=== PATIENT | female | born 1955 | race American Indian/Alaskan Native ===

== ENCOUNTER 2020-10-19 17:08 | Inpatient (IN) | payer BC ==
[~2020-10-19] VITALS: Ht 157.5 cm; Wt 87.8 kg
[2020-10-19] MEDS: DOXYCYCLINE 100MG/250ML 250 ML IV SCH (02:40)
[~2020-10-19 17:08] MED LIST: INSUINJ37 SUBCUT; LINA5TAB PO; LOSA25TA38 PO; METF-370 PO
[2020-10-19] MEDS ORDERED: methylPREDNISolone SOD SUCC 125 MG/2 ML VL IV ONE (18:45)
[2020-10-19] MEDS ORDERED: AZITHROMYCIN 500MG/ 250ML 250 ML IV ONE (18:45)
[2020-10-19] MEDS ORDERED: ZINC SULFATE 220mg CAP or TAB PO ONE (18:45)
[2020-10-19] MEDS ORDERED: SODIUM CHLORIDE 0.9% 500 ML IV ONE (18:45)
[2020-10-19] MEDS ORDERED: SODIUM CHLORIDE 0.9% 1,000 ML IV SCH (21:15)
[2020-10-19 21:23] LABS: Basophils # (auto) 0 10 ^3/uL (0-0.2); Basophils % (auto) 0.5 % (0.0-2.0); Eosinophils # (auto) 0.1 10 ^3/uL (0-0.8); Eosinophils % (auto) 1.8 % (0.0-7.0); Hematocrit 39.3 % (36.0-46.0); Hemoglobin 13.2 g/dL (12.2-16.2); Lymphocytes # (auto) 0.7 10 ^3/uL (0.4-5.4); Lymphocytes % (auto) 14.6 % (10.0-50.0); Mean Corpuscular Hemoglobin 27.3 pg (28.0-32.0); Mean Corpuscular Hgb Conc. 33.5 g/dL (32.0-36.0); Mean Corpuscular Volume 81.4 fL (80.0-100.0); Monocytes # (auto) 0.5 10 ^3/uL (0-1.3); Monocytes % (auto) 10.8 % (0.0-12.0); Neutrophils # (auto) 3.7 10 ^3/uL (1.6-8.6); Neutrophils % (auto) 72.3 % (37.0-80.0); Nucleated Red Blood Cells % 0.5 %; Platelet Count (auto) 315 10^3/uL (140-450); Red Blood Cells 4.83 10^6/uL (4.0-5.20); Red Cell Distribution Width 14.4 % (11.8-14.3); White Blood Cell 5.1 10^3/uL (4.4-10.8)
[2020-10-19 21:38] LABS: Albumin 3.1 g/dL (3.4-5.0); Anion Gap 9 (5-15); BUN/Creatinine Ratio 10.6; Blood Urea Nitrogen 5 mg/dL (7-18); Calcium 8.7 mg/dL (8.5-10.1); Carbon Dioxide 26 mmol/L (21-32); Chloride 96 mmol/L (98-107); GFR African American 172 mL/min; GFR Non-African American 142 mL/min; Glucose 121 mg/dL (74-106); Magnesium 1.8 mg/dL (1.6-2.6); Potassium 3.2 mmol/L (3.5-5.1); Sodium 131 mmol/L (136-145)
[2020-10-19 21:43] LABS: Alanine Aminotransferase 34 U/L (13-56); Alkaline Phosphatase 88 U/L (45-117); Aspartate Aminotransferase 22 U/L (15-37); Bilirubin, Total 0.8 mg/dL (0.2-1.0); Total Protein 7.9 g/dL (6.4-8.2)
[2020-10-19] MEDS: ALBUTEROL SULF HFA 90MCG INH 200DOSE IN SCH (22:00)
[2020-10-19] MEDS ORDERED: ONDANSETRON HCL 4 MG/2 ML VIAL IV PRN (22:45)
[2020-10-19] MEDS ORDERED: TEMAZEPAM 15 MG CAP PO PRN (22:45)
[2020-10-19] MEDS ORDERED: ACETAMINOPHEN 325 MG TAB PO PRN (22:45)
[2020-10-19] MEDS ORDERED: NITROGLYCERIN 0.4 MG SL TAB SL PRN (22:45)
[2020-10-19] MEDS ORDERED: MORPHINE SULF INJ 2 MG/ML SYRINGE 1ML IV PRN (22:45)
[2020-10-20 03:28] VITALS: BP 114/65
[2020-10-20 05:40] LABS: Basophils # (auto) 0 10 ^3/uL (0-0.2); Basophils % (auto) 0.2 % (0.0-2.0); Eosinophils # (auto) 0 10 ^3/uL (0-0.8); Eosinophils % (auto) 0.6 % (0.0-7.0); Hematocrit 40.9 % (36.0-46.0); Hemoglobin 13.8 g/dL (12.2-16.2); Lymphocytes # (auto) 0.4 10 ^3/uL (0.4-5.4); Lymphocytes % (auto) 7.4 % (10.0-50.0); Mean Corpuscular Hemoglobin 27.6 pg (28.0-32.0); Mean Corpuscular Hgb Conc. 33.8 g/dL (32.0-36.0); Mean Corpuscular Volume 81.7 fL (80.0-100.0); Monocytes # (auto) 0.3 10 ^3/uL (0-1.3); Monocytes % (auto) 5.1 % (0.0-12.0); Neutrophils # (auto) 4.8 10 ^3/uL (1.6-8.6); Neutrophils % (auto) 86.7 % (37.0-80.0); Nucleated Red Blood Cells % 0.1 %; Platelet Count (auto) 294 10^3/uL (140-450); Red Cell Distribution Width 14.8 % (11.8-14.3); White Blood Cell 5.5 10^3/uL (4.4-10.8)
[2020-10-20 05:52] LABS: Potassium 3.7 mmol/L (3.5-5.1)
[2020-10-20 05:59] LABS: Albumin 2.8 g/dL (3.4-5.0); BUN/Creatinine Ratio 13.6; Calcium 8.9 mg/dL (8.5-10.1); Total Protein 7.3 g/dL (6.4-8.2)
[2020-10-20] MEDS: ALBUTEROL SULF HFA 90MCG INH 200DOSE IN SCH ×3 (06:00→21:40)
[2020-10-20] MEDS ORDERED: LOSARTAN POTASSIUM 25 MG TAB PO SCH (10:00)
[2020-10-20] MEDS: ENOXAPARIN SOD 40 MG/0.4 ML SYRINGE SC SCH (10:51)
[2020-10-20] MEDS: ASCORBIC ACID 1,000 MG TAB PO SCH (10:51)
[2020-10-20] MEDS: CHOLECALCIFEROL (VITD3) 2,000 UNIT CAP PO SCH (10:51)
[2020-10-20] MEDS: DOXYCYCLINE 100MG/250ML 250 ML IV SCH ×2 (10:52→22:11)
[2020-10-20] MEDS: ZINC SULFATE 220mg CAP or TAB PO SCH (10:52)
[2020-10-20] MEDS: DexAMETHasone SOD PHOS 10MG/1ML VIAL INJ IV SCH (10:53)
[2020-10-20] MEDS: FAMOTIDINE 20 MG TAB PO SCH ×2 (11:00→22:12)
[2020-10-20] MEDS ORDERED: DEXTROSE (50%) 50ML SYRG IV PRN (15:30)
[2020-10-20] MEDS: ACCU-CHEK COMFORT CURVE STRIP VI SCH ×2 (17:47→22:12)
[2020-10-20] MEDS: InsuLIN REG 1unit/0.01ml Soln (100units/ml) SC SCH ×2 (17:48→22:52)
[2020-10-20] MEDS: BUDESONIDE (INHALATION) 0.5 MG/2 ML NEB NEB SCH (21:40)
[2020-10-21 00:22] VITALS: BP 104/73
[2020-10-21] MEDS ORDERED: LEVEMIR SC (02:36)
[2020-10-21] MEDS ORDERED: DORZ2SOL18 EACHEYE (02:47)
[2020-10-21] MEDS ORDERED: LATA0.0019 EACHEYE (02:47)
[2020-10-21 05:00] VITALS: BP 107/74
[2020-10-21] MEDS: InsuLIN REG 1unit/0.01ml Soln (100units/ml) SC SCH ×4 (05:55→21:01)
[2020-10-21] MEDS: ACCU-CHEK COMFORT CURVE STRIP VI SCH ×4 (05:56→21:02)
[2020-10-21] MEDS: ALBUTEROL SULF HFA 90MCG INH 200DOSE IN SCH ×3 (06:25→19:15)
[2020-10-21 06:47] LABS: Urine WBC None Seen /hpf (0 - 5)
[2020-10-21 06:59] LABS: Urine Bacteria NONE SEEN /hpf (None Seen); Urine Blood Negative /uL (Negative); Urine Specific Gravity 1.005 (1.001-1.035)
[2020-10-21 07:02] LABS: Basophils # (auto) 0 10 ^3/uL (0-0.2); Basophils % (auto) 0.6 % (0.0-2.0); Eosinophils # (auto) 0 10 ^3/uL (0-0.8); Eosinophils % (auto) 0.7 % (0.0-7.0); Hematocrit 38.6 % (36.0-46.0); Hemoglobin 13.2 g/dL (12.2-16.2); Lymphocytes # (auto) 0.8 10 ^3/uL (0.4-5.4); Mean Corpuscular Hemoglobin 27.7 pg (28.0-32.0); Mean Corpuscular Hgb Conc. 34.2 g/dL (32.0-36.0); Mean Corpuscular Volume 81.1 fL (80.0-100.0); Monocytes # (auto) 0.5 10 ^3/uL (0-1.3); Monocytes % (auto) 10.8 % (0.0-12.0); Neutrophils # (auto) 3.2 10 ^3/uL (1.6-8.6); Neutrophils % (auto) 69.9 % (37.0-80.0); Nucleated Red Blood Cells % 0.2 %; Platelet Count (auto) 349 10^3/uL (140-450); Red Blood Cells 4.76 10^6/uL (4.0-5.20); Red Cell Distribution Width 14.6 % (11.8-14.3); White Blood Cell 4.6 10^3/uL (4.4-10.8)
[2020-10-21 07:27] LABS: BUN/Creatinine Ratio 21.7; Calcium 9.1 mg/dL (8.5-10.1); Potassium 3.7 mmol/L (3.5-5.1)
[2020-10-21 09:00] VITALS: BP 109/60
[2020-10-21] MEDS: DexAMETHasone SOD PHOS 10MG/1ML VIAL INJ IV SCH (10:07)
[2020-10-21] MEDS: DOXYCYCLINE 100MG/250ML 250 ML IV SCH ×2 (10:08→21:03)
[2020-10-21] MEDS: ZINC SULFATE 220mg CAP or TAB PO SCH (10:08)
[2020-10-21] MEDS: FAMOTIDINE 20 MG TAB PO SCH ×2 (10:08→21:02)
[2020-10-21] MEDS: ASCORBIC ACID 1,000 MG TAB PO SCH (10:08)
[2020-10-21] MEDS: CHOLECALCIFEROL (VITD3) 2,000 UNIT CAP PO SCH (10:08)
[2020-10-21] MEDS: ENOXAPARIN SOD 40 MG/0.4 ML SYRINGE SC SCH (10:09)
[2020-10-21 13:00] VITALS: BP 104/72
[2020-10-21] MEDS ORDERED: DOCUSATE SOD 100 MG CAP PO ONE (13:00)
[2020-10-21] MEDS ORDERED: DOCUSATE SOD 100 MG CAP PO PRN (13:00)
[2020-10-21] MEDS: BUDESONIDE (INHALATION) 0.5 MG/2 ML NEB NEB SCH (14:45)
[2020-10-21 17:00] VITALS: BP 98/56
[2020-10-21 22:00] VITALS: BP 108/65
[2020-10-22 05:00] VITALS: BP 90/51
[2020-10-22] MEDS: InsuLIN REG 1unit/0.01ml Soln (100units/ml) SC SCH ×3 (05:50→18:15)
[2020-10-22] MEDS: ACCU-CHEK COMFORT CURVE STRIP VI SCH ×3 (05:50→17:00)
[2020-10-22] MEDS: ALBUTEROL SULF HFA 90MCG INH 200DOSE IN SCH (06:40)
[2020-10-22 08:36] VITALS: BP 103/63
[2020-10-22] MEDS: DexAMETHasone SOD PHOS 10MG/1ML VIAL INJ IV SCH (09:00)
[2020-10-22] MEDS: DOXYCYCLINE 100MG/250ML 250 ML IV SCH (09:00)
[2020-10-22] MEDS: ENOXAPARIN SOD 40 MG/0.4 ML SYRINGE SC SCH (09:01)
[2020-10-22] MEDS: ZINC SULFATE 220mg CAP or TAB PO SCH (09:01)
[2020-10-22] MEDS: FAMOTIDINE 20 MG TAB PO SCH (09:01)
[2020-10-22] MEDS: CHOLECALCIFEROL (VITD3) 2,000 UNIT CAP PO SCH (09:01)
[2020-10-22] MEDS: ASCORBIC ACID 1,000 MG TAB PO SCH (09:01)
[2020-10-22] MEDS ORDERED: ALBUTEROL SULF HFA 90MCG INH 200DOSE IN PRN (10:30)
[2020-10-22 12:56] VITALS: BP 111/76
[2020-10-22 16:35] VITALS: BP 100/66
[2020-10-22 17:05] VITALS: BP 100/66
== END 2020-10-22 19:40 | disposition home or self-care (01) | DRG 177 ==
LOC: ER 17:11 → TELE 17:12 → TELE-CENTR 10-20 23:46
PROVIDERS: ADMIT Nurse Practitioner; ATTEND Internal Medicine
DX: U07.1 COVID-19 (principal); J12.89 Other viral pneumonia; J96.01 Acute respiratory failure with hypoxia; E11.9 Type 2 diabetes mellitus without complications; Z90.49 Acquired absence of other specified parts of digestive tract; Z79.82 Long term (current) use of aspirin
CPT/HCPCS: 36415; 71045; 80048; 80053; 81001; 82728; 82962; 83036; 83735; 84484; 85025; 86141; 93005; 94640; G0378; J1100; J1815; J3490

== ENCOUNTER 2025-08-15 15:58 | Emergency (ER) | payer BC ==
[~2025-08-15] VITALS: Ht 167.6 cm; Wt 82.0 kg
[~2025-08-15 15:58] MED LIST changes: +DORZ2SOL18 EACHEYE; +LATA0.008 EACHEYE; +LEVEMIR SC; +LOSA-533 PO; -LOSA25TA38 PO
[2025-08-15 16:01] VITALS: TEMP 97.8
--- NOTE | 2025-08-15 16:26 | ED.PDOC ---
General HPI Comments This patient is a pleasant but obese 69 year-old female, with a Hx of Kidney Stones, who presents to the ED with a chief complaint of R flank pain, radiating to back. Patient reports feeling this pain before with previous Kidney Stone diagnoses. Patient has no further complaints at this time and otherwise denies dysuria, hematuria, abdominal pain, or N/V/D. Vital signs were stable. Chief Complaint: Flank Pain Time Seen by MD: 16:18 Reviewed notes: Nurses Notes, Medications, Allergies Allergies: Coded Allergies: Amoxicillin (Verified Allergy, Unknown, 08/15/25) Clavulanic Acid (Verified Allergy, Unknown, 08/15/25) Home Meds Reported Medications Latanoprost (LATANOPROST) 0.005 % Holly, 1 DROP EACHEYE QPM, #7.5 ML 3 Refills 10/21/20 Dorzolamide-Timolol (Dorzolamide Hcl/Timolol M) 1 Ml Holly, 1 DROP EACHEYE BID, #10 ML 6 Refills 10/21/20 Insulin Detemir (Levemir) Inj, 56 SC HS, INJ 10/21/20 Insulin Glargine (Lantus Solostar) Solostar Inj, 55 UNIT SUBCUT QPM, #15 ML 3 Refills 08/05/16 Linagliptin Base (TRADJENTA) 5 Mg Tab, 1 TAB PO DAILY, #90 TAB 1 Refill 06/03/16 Losartan Potassium (Losartan Potassium) 25 Mg Tab, 25 MG PO DAILY for 30 Days, MG 06/03/16 Metformin Hydrochloride (Metformin Hcl) 500 Mg Tab, 1000 MG PO IBID for 30 Days, MG 06/03/16 Information Source: Patient Mode of Arrival: Ambulatory Severity: Moderate Duration: Since onset Prehospital treatment: None Onset: Spontaneous Symptoms: None History of: Kidney stone Location: Abdomen, (R) Flank associated signs and symptoms: Abdominal Pain, Nausea Past Medical History PAST MEDICAL HISTORY: DM, Kidney Stones Surgical History: Cholecystectomy, DEVELOPMENT EDITOR History: Denies all DEVELOPMENT EDITOR Hx Family History Family History: Reviewed,noncontributory to illness Social History Smoker: Non-Smoker Alcohol: Denies ETOH Use Drugs: Denies Drug Use Lives In: Home Constitutional: denies: chills, diaphoresis, fatigue, fever, malaise, sweats, weakness, others EENTM: denies: blurred vision, double vision, ear bleeding, ear discharge, ear drainage, ear pain, ear ringing, eye pain, eye redness, hearing loss, mouth pain, mouth swelling, nasal discharge, nose bleeding, nose congestion, nose pain, photophobia, tearing, throat pain, throat swelling, voice changes, others Respiratory: denies: cough, hemoptysis, orthopnea, SOB at rest, shortness of breath, SOB with excertion, stridor, wheezing, others Cardiovascular: denies: chest pain, dizzy spells, diaphoresis, Dyspnea on exertion, edema, irregular heart beat, left arm pain, lightheadedness, palpitations, PND, syncope, others Gastrointestinal: reports: nausea; denies: abdomen distended, abdominal pain, blood streaked bowels, constipated, diarrhea, dysphagia, difficulty swallowing, hematemesis, melena, poor appetite, poor fluid intake, rectal bleeding, rectal pain, vomiting, others Genitourinary: reports: flank pain; denies: abnormal vagina bleeding, burning, dyspareunia, dysuria, frequency, hematuria, incontinence, pain, , vagina discharge, urgency, others Neurological: denies: dizziness, fainting, headache, left sided numbness, left sided weakness, numbness, paresthesia, pre-existing deficit, right sided numbness, right sided weakness, seizure, speech problems, tingling, tremors, weakness, others Musculoskeletal: reports: back pain; denies: gout, joint pain, joint swelling, muscle pain, muscle stiffness, neck pain, others Integumetry: denies: bruises, change in color, change in hair/nails, dryness, laceration, lesions, lumps, rash, wounds, others Allergic/Immunocompromised: denies: Difficulty Healing, Frequent Infections, Hives, Itching, others Hematologic/Lymphatic: denies: anemia, blood clots, easy bleeding, easy bruising, swollen glands, others Endocrine: denies: excessive hunger, excessive sweating, excessive thirst, excessive urination, flushing, intolerance to cold, intolerance to heat, unexplained weight gain, unexplained weight loss, others Psychiatric: denies: anxiety, bipolar disorder, depression, hopeless, panic disorder, schizophrenia, sleepless, suicidal, others All Other Systems: Reviewed and Negative Physical Exam General Appearance: Moderate Distress (Patient was in moderate distress at time of evaluation due to right-sided flank pain and abdominal pain concerns.), Normal HEENT: Normal ENT Inspection, Pharynx Normal, TMs Normal Neck: Full Range of Motion, Non-Tender, Normal, Normal Inspection Respiratory: Chest Non-Tender, Lungs Clear, No Accessory Muscle Use, No Respiratory Distress, Normal Breath Sounds Cardiovascular: No Edema, No JVD, No Murmur, No Gallop, Normal Peripheral Pulses, Regular Rate/Rhythm Breast Exam: Deferred Gastrointestinal: Other (Patient complains of right-sided CVA tenderness extending into the right flank and right lower abdomen. Difficult to assess due to body habitus. No signs of trauma. No pulsatile masses.) Genitalia: Deferred Pelvic: Deferred Rectal: Deferred Extremities: No calf tenderness, Normal capillary refill, Normal inspection, Normal range of motion, Non-tender, No pedal edema Neurologic: Alert Cerebellar Function: NOT DONE Reflexes: NOT DONE Skin: Dry, Normal Color, Warm Lymphatic: No Adenopathy Was a procedure done? Was a procedure done?: No Differential Diagnosis Kidney stone (Female): Pyelonephritis, Strain, Urolithiasis Urinary Problem (Female): Urinary retention, UTI, Vaginitis X-Ray, Labs, Meds, VS Vital Signs Date Time Temp Pulse Resp B/P (MAP) Pulse Ox O2 Delivery O2 Flow Rate FiO2 08/15/25 16:01 97.8 74 16 101/47 97 97.8 Lab Test 08/15/25 17:15 08/15/25 00:00 Range/Units White Blood Count 6.4 4.4-10.8 10^3/uL Red Blood Count 5.11 4.0-5.20 10^6/uL Hemoglobin 14.5 12.2-16.2 g/dL Hematocrit 43.3 36.0-46.0 % Mean Corpuscular Volume 84.7 80.0-100.0 fL Mean Corpuscular Hemoglobin 28.3 28.0-32.0 pg Mean Corpuscular Hemoglobin Concent 33.4 32.0-36.0 g/dL Red Cell Distribution Width 15.4 H 11.8-14.3 % Platelet Count 169 140-450 10^3/uL Mean Platelet Volume 8.1 6.9-10.8 fL Neutrophils (%) (Auto) 67.1 37.0-80.0 % Lymphocytes (%) (Auto) 22.2 10.0-50.0 % Monocytes (%) (Auto) 8.8 0.0-12.0 % Eosinophils (%) (Auto) 1.5 0.0-7.0 % Basophils (%) (Auto) 0.4 0.0-2.0 % Neutrophils # (Auto) 4.3 1.6-8.6 10 ^3/uL Lymphocytes # (Auto) 1.4 0.4-5.4 10 ^3/uL Monocytes # (Auto) 0.6 0-1.3 10 ^3/uL Eosinophils # (Auto) 0.1 0-0.8 10 ^3/uL Basophils # (Auto) 0 0-0.2 10 ^3/uL Nucleated Red Blood Cells 0.0 % Sodium Level 137 136-145 mmol/L Potassium Level 3.8 3.5-5.1 mmol/L Chloride Level 99 98-107 mmol/L Carbon Dioxide Level 28 20-31 mmol/L Anion Gap 10 5-15 Blood Urea Nitrogen 7 L 9-23 mg/dL Creatinine 0.58 0.550-1.02 mg/dL Glomerular Filtration Rate Calc 99 >90 mL/min BUN/Creatinine Ratio 12.1 10.0-20.0 Serum Glucose 105 74-106 mg/dL Calcium Level 9.6 8.7-10.4 mg/dL Urine Color Colorless Yellow Urine Clarity Clear Clear Urine pH 6.5 5.0-9.0 Urine Specific [place] 1.006 1.001-1.035 Urine Protein Negative Negative Urine Ketones Negative Negative Urine Blood Negative Negative /uL Urine Nitrite Negative Negative Urine Bilirubin Negative Negative Urine Urobilinogen Normal Negative mg/dL Urine Leukocyte Esterase Negative Negative /uL Urine RBC None seen 0 - 4 /hpf Urine Microscopic WBC 2 0-5 /HPF Urine Squamous Epithelial Cells Few <5 /hpf Urine Bacteria Few H None Seen /hpf Urine Glucose Normal Normal mg/dL [address] [address] Ph: [phone] DIAGNOSTIC IMAGING Diagnostic Imaging Report : [id number] Signed PATIENT: HARPER PARADA ACCT: [id number] UNIT: [id number] : 1955 LOC: ER ROOM / BED: / AGE / SEX: 69 / F ADM STATUS: REG ER SERVICE [id number] ORDERING PHYSICIAN: MEME HUGGINS PAC PROCEDURE(s): ABPL - CT AB PEL WO CON-NO ORAL OR IV REASON: Right-sided flank pain/history of stones ORDER NUMBER(s): [id number], ACCESSION NUMBER(s): [id number] EXAM: CT CT AB PEL WO CON-NO ORAL OR IV INDICATION: Right-sided flank pain/history of stones TECHNIQUE: Volumetric multidetector CT images of the abdomen and pelvis were obtained without contrast. All CT scans at this facility use dose modulation, iterative reconstruction, and/or weight based dosing when appropriate to reduce radiation dose to as low as reasonably achievable. COMPARISON: None FINDINGS: [LOWER CHEST]: The partially visualized lung bases are clear without a pleural effusion. The cardiac size is normal without pericardial effusion. [LIVER]: Normal hepatic size without suspicious focal lesion. [GALLBLADDER AND BILIARY TREE]: Surgically absent. [SPLEEN]: Unremarkable. [PANCREAS]: Unremarkable. [ADRENAL GLANDS]: Unremarkable [KIDNEYS]: No hydronephrosis. 1-2 mm nonobstructive left inferior renal caliceal stone. [BLADDER]: Unremarkable for the degree distention. [REPRODUCTIVE ORGANS]: Calcified fibroid. [BOWEL/MESENTERY]: Stomach is normal. No CT evidence of bowel obstruction. Mild stool burden. Normal appendix. Minimal sigmoid diverticulosis. [ASCITES]: Absent [LYMPHADENOPATHY]: No pathologically enlarged lymph nodes by CT size criteria [VASCULATURE]: No aneurysmal dilatation. tangle of vessels which may be related to superficial drainage from the left common femoral vein extending along the superficial epigastric vessels of the left anterior hemiabdomen [ABDOMINAL WALL]: Small fat containing left inguinal hernia. [MUSCULOSKELETAL]: Suspected chronic superior endplate height loss of L2 compatible with compression deformity with 20 percent superior endplate height loss. No evidence of retropulsion. Sclerosis along superior endplate Multifocal degenerative change of the visualized spine. trace anterolisthesis L3 over L4. Trace anterolisthesis L4 over L5. IMPRESSION: 1. No hydronephrosis or right distal ureter. 2. Nonobstructive trace left renal caliceal stone. 3. Mild stool burden. X-Ray, Labs, Meds, VS Comment All studies performed the ED were evaluated by me personally. Laboratories and urinalysis were unremarkable for any systemic concerns. No red blood cell deposition in the urine. CT of the abdomen was unremarkable for any acute urinary system concerns. It appears the patient may have recently passed a kidney stone. Advised patient utilize pain medication as needed, hydrate well and follow up with the primary care provider for discussions related to today's visit. Images Reviewed?: Images reviewed and evaluated by me Time of 1ST Reevaluation: 18:10 Reevaluation 1ST: Improved Consultation: PCP Patient Education/Counseling: Diagnosis, Treatment Family Education/Counseling: Diagnosis, Treatment, No Family Present Medical Screening: No EMC Exist At This Time SEPSIS Sepsis Screen Date sepsis recognized/suspect: Aug 15, 2025 Time Sepsis recognized/suspect: 160 Recent Procedure: No On Antibiotic Therapy: No Respiratory Rate >20: No Heart Rate >90: No Temp<36 C (96.8 F) or >38.3 C: No SBP <90 or MAP <65 mmHG: No New Acute Mental Status Change: No Is the patient on CPAP, BIPAP,: No Physician Orders Ct Ab Pel Wo Con-No Oral Or Iv (08/15/25 16:15) Vital Signs Date Time Temp Pulse Resp B/P (MAP) Pulse Ox O2 Delivery O2 Flow Rate FiO2 08/15/25 16:01 97.8 74 16 101/47 97 97.8 Laboratory Tests Test 08/15/25 17:15 White Blood Count 6.4 10^3/uL (4.4-10.8) Departure 1 Departure Time of Disposition: 18:10 Impression: Primary Impression: Flank pain with history of urolithiasis Disposition: HOME / SELF CARE / HOMELESS Condition: Stable Additional Instructions: Advised pain medication as needed, good hydration and follow up with the primary care provider for conversation is related to today's visit. e-Prescriptions Tramadol Hcl (Tramadol Hcl) 50 Mg Tab 50 MG PO Q6HP PRN, #15 TAB Prov: MEME HUGGINS PAC 08/15/25 Ibuprofen Micronized (Ibuprofen) 800 Mg Tab 800 MG PO Q8HP PRN, #20 TAB Prov: MEME HUGGINS PAC 08/15/25 Discharged With: Self, Friend Critical Care Note Critical Care Time?: No Stability Stability form required: No Heart Score Heart Score: Heart Score Response (Comments) Value History N/A 0 EKG N/A 0 Age N/A 0 Risk Factors N/A 0 Troponin N/A 0 Total 0 I personally scribed for MEME HUGGINS PAC ([email or web address]) on 08/15/25 at 16:26. Electronically submitted by Comfort Meredith ([employer]). I personally scribed for MEME HUGGINS PAC ([email or web address]) on 08/15/25 at 16:38. Electronically submitted by Comfort Meredith ([email or web address]). I personally scribed for MEME HUGGINS PAC ([email or web address]) on 08/15/25 at 17:25. Electronically submitted by Comfort Meredith ([email or web address]). MEME HUGGINS PAC Aug 15, 2025 16:26
--- NOTE | 2025-08-15 17:04 | DVH ---
EXAM: CT CT AB PEL WO CON-NO ORAL OR IV INDICATION: Right-sided flank pain/history of stones TECHNIQUE: Volumetric multidetector CT images of the abdomen and pelvis were obtained without contras t. All CT scans at this facility use dose modulation, iterative reconstruction, and/or weight based d osing when appropriate to reduce radiation dose to as low as reasonably achievable. COMPARISON: None FINDINGS: [LOWER CHEST]: The partially visualized lung bases are clear without a pleural effusion. The cardiac size is normal without pericardial effusion. [LIVER]: Normal hepatic size without suspicious focal lesion. [GALLBLADDER AND BILIARY TREE]: Surgically absent. [SPLEEN]: Unremarkable. [PANCREAS]: Unremarkable. [ADRENAL GLANDS]: Unremarkable [KIDNEYS]: No hydronephrosis. 1-2 mm nonobstructive left inferior renal caliceal stone. [BLADDER]: Unremarkable for the degree distention. [REPRODUCTIVE ORGANS]: Calcified fibroid. [BOWEL/MESENTERY]: Stomach is normal. No CT evidence of bowel obstruction. Mild stool burden. Normal appendix. Minimal sigmoid diverticulosis. [ASCITES]: Absent [LYMPHADENOPATHY]: No pathologically enlarged lymph nodes by CT size criteria [VASCULATURE]: No aneurysmal dilatation. tangle of vessels which may be related to superficial draina ge from the left common femoral vein extending along the superficial epigastric vessels of the left a nterior hemiabdomen [ABDOMINAL WALL]: Small fat containing left inguinal hernia. [MUSCULOSKELETAL]: Suspected chronic superior endplate height loss of L2 compatible with compression deformity with 20 percent superior endplate height loss. No evidence of retropulsion. Sclerosis wilbert ng superior endplate Multifocal degenerative change of the visualized spine. trace anterolisthesis L3 over L4. Trace anterolisthesis L4 over L5. IMPRESSION: 1. No hydronephrosis or right distal ureter. 2. Nonobstructive trace left renal caliceal stone. 3. Mild stool burden.
[2025-08-15 17:43] LABS: Hematocrit 43.3 % (36.0-46.0); Hemoglobin 14.5 g/dL (12.2-16.2); Mean Corpuscular Hemoglobin 28.3 pg (28.0-32.0); Mean Corpuscular Volume 84.7 fL (80.0-100.0); Nucleated Red Blood Cells % 0.0 %
[2025-08-15 17:49] LABS: Chloride 99 mmol/L (98-107); Potassium 3.8 mmol/L (3.5-5.1); Sodium 137 mmol/L (136-145)
[2025-08-15 17:50] LABS: Anion Gap 10 (5-15); Calcium 9.6 mg/dL (8.7-10.4); Carbon Dioxide 28 mmol/L (20-31)
[2025-08-15 17:55] LABS: Glucose 105 mg/dL (74-106)
[2025-08-15 17:58] LABS: BUN/Creatinine Ratio 12.1 (10.0-20.0); Blood Urea Nitrogen 7 mg/dL (9-23)
[2025-08-15 18:01] LABS: Urine Protein, UAD Negative (Negative)
[2025-08-15] MEDS ORDERED: TRAM50TA2 PO (18:12)
[2025-08-15] MEDS ORDERED: IBUP-1455 PO (18:12)
[2025-08-15 18:31] VITALS: BP 110/72; PULSE 77; RESP 16; O2SAT 96
[2025-08-15] MEDS: HYDROcodone-ACET 10/325MG TAB PO ONE (18:34)
[2025-08-15] MEDS: KETOROLAC TROMETH 60MG/2ML VIAL IM ONE (18:34)
== END 2025-08-15 18:13 | disposition home or self-care (01) ==
LOC: ER 16:03
DX: R10.9 Unspecified abdominal pain (principal); E11.9 Type 2 diabetes mellitus without complications; E66.9 Obesity, unspecified; Z87.442 Personal history of urinary calculi; Z90.49 Acquired absence of other specified parts of digestive tract; Z88.0 Allergy status to penicillin; Z79.899 Other long term (current) drug therapy; Z79.84 Long term (current) use of oral hypoglycemic drugs; Z98.890 Other specified postprocedural states; Z68.29 Body mass index [BMI] 29.0-29.9, adult
CPT/HCPCS: 36415; 74176; 80048; 81001; 85025; 96372; 99285; A4315; J1885